=== PATIENT | male | born 1955 | race Caucasian/White ===

== ENCOUNTER 2022-06-09 11:25 | Emergency (ER) | payer OTHER, MEDICARE ==
[~2022-06-09] VITALS: Ht 180 cm; Wt 86.0 kg
[~2022-06-09 11:25] MED LIST: ASP81TEC PO
[2022-06-09 12:32] LABS: CLARITY,URINE CLEAR; COLOR,URINE YELLOW; GLUCOSE, URINE (UA) NEGATIVE (NEGATIVE); KETONES,URINE NEGATIVE (NEGATIVE); LEUKOCYTE ESTERASE ,URINE NEGATIVE (NEGATIVE); NITRITE,URINE NEGATIVE (NEGATIVE); PH,URINE 5.5 (5-9); PROTEIN,URINE TRACE (NEGATIVE)
[2022-06-09 12:43] LABS: BACTERIA,URINE TRACE /HPF; BILIRUBIN,URINE 1+ (NEGATIVE); RBC,URINE RARE /HPF; SQUAMOUS EPITHELIAL CELL,UR RARE /HPF
--- NOTE | 2022-06-09 13:03 | ED General ---
General Chief Complaint: COVID19 Suspect/Confirmed Stated Complaint: HEADACHE,COUGH,CHILL,FEVER,FATIGUE Nursing Triage Note: PT STATES NOT FEELING WELL SINCE WEDNESDAY, FEVER OFF AND ON, 36.8 AT TRIAGE, COUGHING, WAS SEEN AT [facility] AND PUT N ABX FOR STREP BUT NO STREP SWAB TAKEN, ALSO TOLD HE HAS BLOOD IN HIS URINE, RT FLANK PAIN WEDNESDAY Source of Information: Patient Exam Limitations: No Limitations History of Present Illness Date Seen by Provider: Jun 09, 2022 Initial Comments 66 yo cough, fever, sore throat, seen at [facility] on Wednesday, diagnosed with Strep and given Amoxicillin. Allergies and Home Medications Allergies Coded Allergies: Codeine (Unverified Allergy, 06/23/11) Patient Home Medication List Aspirin (Aspirin Ec 81 Mg) 81 Mg Tabec, 81 MG PO DAILY, (Reported) Entered as Reported by: HARVINDER LOAIZA on 06/23/11 1121 Past Hgwdtkm-Obofey-Drvurl Hx Patient Social History Tobacco Use?: Yes Tobacco type used: Cigarettes Smoking Status: Current Everyday Smoker Substance use?: No Alcohol Use?: No Physical Exam Vital Signs Vital Signs - First Documented 06/09/22 11:49 Temp 36.8 Pulse 70 Resp 20 B/P (MAP) 145/102 (116) Pulse Ox 97 O2 Delivery Room Air Capillary Refill : Less Than 3 Seconds Height, Weight, BMI Height: '" Weight: lbs. oz. kg; 26.00 BMI Method: Progress/Results/Core Measures Suspected Sepsis SIRS Temperature: Pulse: 70 Respiratory Rate: 20 Blood Pressure 145 /102 Mean: 116 Results/Orders Lab Results Laboratory Tests Test 06/09/22 11:55 06/09/22 12:15 Range/Units Influenza Type A (RT-PCR) Detected H Not Detecte Influenza Type B (RT-PCR) Not Detected Not Detecte SARS-CoV-2 RNA (RT-PCR) Not Detected Not Detecte Urine Color YELLOW Urine Clarity CLEAR Urine pH 5.5 5-9 Urine Specific [place] 1.025 H 1.016-1.022 Urine Protein TRACE H NEGATIVE Urine Glucose (UA) NEGATIVE NEGATIVE Urine Ketones NEGATIVE NEGATIVE Urine Nitrite NEGATIVE NEGATIVE Urine Bilirubin 1+ H NEGATIVE Urine Urobilinogen 2.0 < = 1.0 MG/DL Urine Leukocyte Esterase NEGATIVE NEGATIVE Urine RBC (Auto) NEGATIVE NEGATIVE Urine RBC RARE /HPF Urine WBC NONE /HPF Urine Squamous Epithelial Cells RARE /HPF Urine Crystals NONE /LPF Urine Bacteria TRACE /HPF Urine Casts NONE /LPF Urine Mucus SMALL H /LPF Urine Culture Indicated NO Vital Signs/I&O 06/09/22 06/09/22 11:49 11:55 Temp 36.8 Pulse 70 Resp 20 B/P (MAP) 145/102 (116) Pulse Ox 97 O2 Delivery Room Air Room Air Capillary Refill : Less Than 3 Seconds Blood Pressure Mean: 116 Departure Impression Primary Impression: Influenza Disposition: 01 HOME, SELF-CARE Condition: Stable Departure-Patient Inst. Decision time for Depature: 12:55 Referrals: AMBER ALFORD MD (PCP/Family) Primary Care Physician Patient Instructions: Flu, Adult ED Add. Discharge Instructions: Plan: 1. You are positive for Flu A. You will need to isolate at home for 5 days and must be fever free for 24 hours before you return to work. 2. May take Tylenol or Ibuprofen as needed for pain/fever per package. 3. Return for any new, concerning, or worsening symptoms. All discharge instructions reviewed with patient and/or family. Voiced understanding. Work/School Note: Work Release Form Date Seen in the Emergency Department: Jun 09, 2022 Return to Work: Jun 15, 2022 Restrictions: No Restrictions KEZIA MOSQUEDA APRN Jun 09, 2022 13:03
[2022-06-09 13:14] VITALS: BP 151/108
== END 2022-06-09 13:13 | disposition home or self-care (01) ==
LOC: EDUNIT# 11:25 → ER 11:28
DX: J11.1 Influenza due to unidentified influenza virus with other respiratory manifestations (principal); F17.210 Nicotine dependence, cigarettes, uncomplicated; Z20.822 Contact with and (suspected) exposure to COVID-19
CPT/HCPCS: 81000; 87088; 87636; 99283

== ENCOUNTER 2022-08-13 12:20 | Emergency (ER) | payer OTHER, MEDICARE ==
[~2022-08-13] VITALS: Ht 177.8 cm; Wt 91.0 kg
--- NOTE | 2022-08-13 12:56 | ED Syncope ---
General Chief Complaint: Dizziness/Syncope Stated Complaint: DIZZY|LIGHTHEADED Nursing Triage Note: PT TO ED WITH GRANDSON BY POV WITH C/O DIZZINESS. 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 DENIES CP OR LOC. REPORTS HE FELT FINE THIS MORNING, DID NOT EAT BREAKFAST. Source of Information: Patient, Family (son) Exam Limitations: No Limitations (DAMIEN LUCERO) History of Present Illness Date Seen by Provider: Aug 13, 2022 Time Seen by Provider: 12:45 Initial Comments Patient is a 66 y/o M who presents to the ER with CC of dizziness and near syncope onset today around noon. 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 He then came to his knees. He denies hitting his head or any other trauma. Denies any pain at the moment. Associated symptoms include nausea, vomi ting, and sweating after the episode of dizziness. States nothing like this has ever happened before. He also reports being here in May for Influenza. Has received 3 doses of the COVID Vaccine. He is a smoker (1 ppd). Timing/Prior Episodes: Single Episode Today Symptoms Prior to Episode: Lightheadedness Loss of Consciousness: No Loss of Consciousness Current Symptoms: Back to Normal, Nausea (DAMIEN LUCERO) Allergies and Home Medications Allergies Coded Allergies: Codeine (Unverified Allergy, 06/23/11) Patient Home Medication List Home Medication List Reviewed: Yes (DAMIEN LUCERO) Aspirin (Aspirin Ec 81 Mg) 81 Mg Tabec, 81 MG PO DAILY, (Reported) Entered as Reported by: HARVINDER LOAIZA on 06/23/11 1121 Review of Systems Constitutional: diaphoresis Respiratory: No cough; short of breath Cardiovascular: No chest pain, No palpitations Gastrointestinal: nausea, vomiting Musculoskeletal: no symptoms reported Psychiatric/Neurological: Denies Headache (DAMIEN LUCERO) Past Oxtgaqc-Hucvbx-Ynacmu Hx Patient Social History Tobacco Use?: Yes Tobacco type used: Cigarettes Smoking Status: Current Everyday Smoker Use of E-Cig and/or Vaping dev: No Substance use?: No Alcohol Use?: No Pt feels they are or have been: No (DAMIEN LUCERO) Immunizations Up To Date Influenza Vaccine Up-to-Date: No; Not Current First/Initial COVID19 Vaccinat: YES Second COVID19 Vaccination Bo: YES Third COVID19 Vaccination Date: YES (CHON LUCEROASHA) Physical Exam Vital Signs Vital Signs - First Documented 08/13/22 12:25 Temp 36.2 Pulse 57 Resp 18 B/P (MAP) 140/87 (104) Pulse Ox 97 O2 Delivery Room Air (TRENT KITCHEN MD) Vital Signs Capillary Refill : Less Than 3 Seconds (BANNERCHONDAMIEN) Height, Weight, BMI Height: '" Weight: lbs. oz. kg; 28.00 BMI Method: General Appearance: No Apparent Distress, WD/WN Neck: Non Tender, Supple Cardiovascular: No Murmur, Normal Peripheral Pulses, Bradycardia Respiratory: Chest Non Tender, No Accessory Muscle Use, No Respiratory Distress, Wheezing (mild) Gastrointestinal: Non Tender, Soft Extremities: Normal Capillary Refill, Non Tender, No Calf Tenderness Neurologic/Psychiatric: Alert, Oriented x3 Skin: Normal Color, Warm/Dry (BANNERCHONDAMIEN) Progress/Results/Core Measures Results/Orders Lab Results Laboratory Tests Test 08/13/22 13:05 08/13/22 13:15 Range/Units White Blood Count 8.9 4.3-11.0 10^3/uL Red Blood Count 5.16 4.30-5.52 10^6/uL Hemoglobin 15.7 13.3-17.7 g/dL Hematocrit 45 40-54 % Mean Corpuscular Volume 88 80-99 fL Mean Corpuscular Hemoglobin 30 25-34 pg Mean Corpuscular Hemoglobin Concent 35 32-36 g/dL Red Cell Distribution Width 13.4 10.0-14.5 % Platelet Count 167 130-400 10^3/uL Mean Platelet Volume 10.5 9.0-12.2 fL Immature Granulocyte % (Auto) 1 % Neutrophils (%) (Auto) 69 42-75 % Lymphocytes (%) (Auto) 18 12-44 % Monocytes (%) (Auto) 9 0-12 % Eosinophils (%) (Auto) 2 0-10 % Basophils (%) (Auto) 1 0-10 % Neutrophils # (Auto) 6.2 1.8-7.8 10^3/uL Lymphocytes # (Auto) 1.6 1.0-4.0 10^3/uL Monocytes # (Auto) 0.8 0.0-1.0 10^3/uL Eosinophils # (Auto) 0.2 0.0-0.3 10^3/uL Basophils # (Auto) 0.1 0.0-0.1 10^3/uL Immature Granulocyte # (Auto) 0.1 0.0-0.1 10^3/uL Sodium Level 136 135-145 MMOL/L Potassium Level 4.3 3.6-5.0 MMOL/L Chloride Level 104 98-107 MMOL/L Carbon Dioxide Level 22 21-32 MMOL/L Anion Gap 10 5-14 MMOL/L Blood Urea Nitrogen 11 7-18 MG/DL Creatinine 1.16 0.60-1.30 MG/DL Estimat Glomerular Filtration Rate 70 BUN/Creatinine Ratio 9 Glucose Level 116 H 70-105 MG/DL Calcium Level 9.1 8.5-10.1 MG/DL SARS-CoV-2 RNA (RT-PCR) Not Detected Not Detecte (TRENT KITCHEN MD) My Orders Orders - TRENT KITCHEN MD Ed Iv/Invasive Line Start (08/13/22 12:48) Cbc With Automated Diff (08/13/22 12:48) Basic Metabolic Panel (08/13/22 12:48) Covid 19 Inhouse Test (08/13/22 12:48) Ekg Tracing (08/13/22 12:48) Chest 1 View, Ap/Pa Only (08/13/22 12:48) Isolation Central Supply Req (08/13/22 12:48) (TRENT KITCHEN MD) Vital Signs/I&O 08/13/22 08/13/22 12:25 15:10 Temp 36.2 Pulse 57 64 Resp 18 16 B/P (MAP) 140/87 (104) 142/87 Pulse Ox 97 94 O2 Delivery Room Air Room Air (TRENT KITCHEN MD) Blood Pressure Mean: 104 Progress Progress Note : Time: 14:55 Progress Note Patient seen and examined by me, I have independently performed history and physical examination. 66-year-old with no known past medical history, has not seen a doctor in over 10 years presents after a near syncopal episode at work today. Patient states he did not eat breakfast or lunch. He only drinks coffee and soda. 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 No complete loss of consciousness is reported. No loss of bowel or bladder function. No injuries reported. Patient at presentation to the ER feels back to normal not really very dizzy at all. No headache, no unilateral weakness numbness or tingling. No speech difficulties or vision changes. He is a daily smoker. Patient was evaluated with routine laboratory studies, CBC, chemistry, EKG. All of these are reviewed and are within normal limits. EKG was sinus bradycardia with marked sinus arrhythmia. Slightly hypertensive at arrival but his systolic at discharge is in the 130s. He is agreeable to outpatient follow-up with primary care, names will be provided. He has no focal neurologic deficits concerning for stroke, I did consider CT. He has no physical exam findings or history concerning for sepsis. Nothing concerning for arrhythmia he did not report palpitations or shortness of breath. No chest pain. Consideration given to seizure however he did not lose consciousness completely or have any loss of bowel or bladder function. Recommended that he quit smoking. Again recommended follow-up with primary care. As he has this marked sinus arrhythmia, almost bigeminal pattern we will also refer him to cardiology. He has never had any provocative studies for co ronary artery disease. Family, ex girlfriend/ is at the bedside. She is going to encourage the above-stated recommendations. All questions are sought and answered. Patient is stable for discharge. (TRENT KITCHEN MD) Initial ECG Impression Date: Aug 13, 2022 Initial ECG Impression Time: 13:05 Initial ECG Rate: 55 Initial ECG Rhythm: S.Camilo Initial ECG Intervals OR interval 164 QRS 114 QTC 407 Comment Sinus bradycardia with PACs, almost bigeminal pattern no ST segment elevation or depression is noted incomplete right bundle branch block (TRENT KITCHEN MD) Diagnostic Imaging Diagonstic Imaging: Xray Comments [facility]. [place], [place] NAME: DELANO [facility] REC#: [id number] PT STATUS: REG ER : 1955 PHYSICIAN: TRENT KITCHEN MD ADMIT DATE: 08/13/22/ER Draft Date of Exam:08/13/22 CHEST 1 VIEW, AP/PA ONLY INDICATION: Dizziness. Sweating and vomiting. FINDINGS: Portable chest. The lungs are well aerated and clear. The heart is upper limits of normal. There is no pulmonary edema. No pneumothorax or pleural effusion. No bony abnormalities. IMPRESSION: Normal portable chest. Dictated on workstation # [id number] Dict: 08/13/22 1406 Trans: 08/13/22 1421 [id number] Interpreted by: CAIO AGUIRRE MD Electronically signed by: (TRENT KITCHEN MD) Counseling-Symptomatic: 3-10 Minutes Follow-up with PCP to: Discuss Further Options (TRENT KITCHEN MD) Departure Impression Primary Impression: Near syncope Additional Impression: Dizziness Disposition: 01 HOME, SELF-CARE Condition: Improved Departure-Patient Inst. Decision time for Depature: 15:00 (TRENT KITCHEN MD) Referrals: NO,LOCAL PHYSICIAN (PCP/Family) Primary Care Physician Patient Instructions: LOCAL PHYSICIAN LIST, Near Fainting (DC) Add. Discharge Instructions: Drink plenty of fluids to stay well-hydrated. Try to bring a snack with you to work to eat on the way to work in the car or during a 30-minute lunch break. You should really try and quit smoking. Please call one of the providers on the list for a follow-up appointment for routine general medical care and evaluation. You need further evaluation of your blood pressure as well as cholesterol and heart function. I have put our local cardiologists contact information on your discharge papers as well. Return to the emergency department if you have a recurrence of symptoms especially with chest pain, shortness of breath, sweating or vomiting. Verification and Attestation of Medical Student E/M Service A medical student performed and documented this service in my presence. I reviewed and verified all information documented by the medical student and made modifications to such information, when appropriate. I personally performed the physical exam and medical decision making. Trent Kitchen, Aug 13, 2022,15:01 (TRENT KITCHEN MD) DAMIEN LUCERO Aug 13, 2022 12:56 TRENT KITCHEN MD Aug 13, 2022 15:01
[2022-08-13 13:10] LABS: BASOPHILS # (AUTO) 0.1 10^3/uL (0.0-0.1); BASOPHILS % (AUTO) 1 % (0-10); EOSINOPHILS # (AUTO) 0.2 10^3/uL (0.0-0.3); EOSINOPHILS % (AUTO) 2 % (0-10); HEMATOCRIT 45 % (40-54); HEMOGLOBIN 15.7 g/dL (13.3-17.7); LYMPHOCYTES # (AUTO) 1.6 10^3/uL (1.0-4.0); LYMPHOCYTES % (AUTO) 18 % (12-44); MEAN CORPUSCULAR HEMOGLOBIN 30 pg (25-34); MEAN CORPUSCULAR HGB CONC 35 g/dL (32-36); MEAN CORPUSCULAR VOLUME 88 fL (80-99); MEAN PLATELET VOLUME 10.5 fL (9.0-12.2); MONOCYTES # (AUTO) 0.8 10^3/uL (0.0-1.0); MONOCYTES % (AUTO) 9 % (0-12); NEUTROPHILS # (AUTO) 6.2 10^3/uL (1.8-7.8); NEUTROPHILS % (AUTO) 69 % (42-75); PLATELET COUNT 167 10^3/uL (130-400); WHITE BLOOD COUNT 8.9 10^3/uL (4.3-11.0)
[2022-08-13 13:35] LABS: CALCIUM 9.1 MG/DL (8.5-10.1); CREATININE SERUM 1.16 MG/DL (0.60-1.30); POTASSIUM 4.3 MMOL/L (3.6-5.0)
--- NOTE | 2022-08-13 14:22 | Diagnostic Imaging Report ---
INDICATION: Dizziness. Sweating and vomiting. FINDINGS: Portable chest. The lungs are well aerated and clear. The heart is upper limits of normal. There is no pulmonary edema. No pneumothorax or pleural effusion. No bony abnormalities. IMPRESSION: Normal portable chest. Dictated by: Dictated on workstation # [id number]
[2022-08-13 15:10] VITALS: BP 142/87
== END 2022-08-13 15:10 | disposition home or self-care (01) ==
LOC: EDUNIT# 12:20 → ER 12:23
DX: R55 Syncope and collapse (principal); R42 Dizziness and giddiness; I49.8 Other specified cardiac arrhythmias; F17.210 Nicotine dependence, cigarettes, uncomplicated; Z20.822 Contact with and (suspected) exposure to COVID-19
CPT/HCPCS: 36415; 71045; 80048; 85025; 87636; 93005